=== PATIENT | female | born 2000 | race Caucasian/White ===

== ENCOUNTER 2025-04-22 07:04 | Emergency (ER) | payer BC, SELFPAY ==
[2025-04-22 07:06] VITALS: BP 126/83
--- NOTE | 2025-04-22 07:34 | ED.GENMED ---
History of Present Illness
General
Chief Complaint: Abdominal Symptoms
Time Seen by Provider: 04/22/25 07:34
History of Present Illness
History of Present Illness:
FOCUSED PAST MEDICAL HISTORY
- Has had uterine polyps in the past
REVIEW OF OLD RECORDS
- No old records available for review in [facility]
Note:
CHIEF COMPLAINT(S)
Abdominal pain and diarrhea.
HISTORY OF PRESENT ILLNESS
The patient is a 24-year-old female who presents with abdominal pain and diarrhea. Symptoms began on with abdominal pain that she initially attributed to menstrual cramps as it coincided with the end of her menstrual cycle. She experienced
diarrhea 12 to 15 times throughout the day on , even having to stop on the side of the road due to urgency. The diarrhea resolved with no bowel movements until the day before the visit when she had a normal bowel movement. This morning, she
awoke at 6 a.m. with a recurrence of the abdominal pain, described as sharp and located on the lower side. The patient denies having abdominal pain yesterday. She describes tenderness in the area but denies any pain on palpation in other areas. She
is unsure about the relation to her menstrual cycle. She has no current fever or vaginal discharge.
PAST MEDICAL AND SURGICAL HISTORY
No mention of past medical conditions or surgeries.
SOCIAL HISTORY
The patient is a student nurse.
PHYSICAL EXAM
General: Alert, appears in no acute distress.
Abdomen: Tenderness in the lower quadrant on palpation.
PROBLEM LIST
- Acute abdominal pain
- Diarrhea
PLAN
- Administer non-narcotic anti-inflammatory medication (Toradol).
- Initiate intravenous fluids.
- Conduct blood work.
- Arrange for a computed tomography (CT) scan of the abdomen with oral and intravenous contrast to assess for potential sources of pain, considering the possibility of appendicitis or other gastrointestinal issues.
DIFFERENTIAL DIAGNOSIS
The Differential Diagnosis includes, in no particular order and is not limited to:
- Appendicitis
- Gastroenteritis
- Irritable bowel syndrome
- Inflammatory bowel disease
- Ovarian cysts
- Pelvic inflammatory disease
- Urinary tract infection
- Diverticulitis
- Endometriosis
- Mesenteric adenitis
RADIOLOGY
- CT imaging obtained which suggest proctocolitis
LABS
- White count 3.6, hemoglobin 13.0, chemistries unremarkable, hCG negative, lipase and LFTs normal
UPDATE
-SUMMARY OF ENCOUNTER
The patient, a 24-year-old female, presented to the emergency department with complaints of abdominal pain and diarrhea. Initially concerned that the pain might relate to her menstrual cycle, further assessment involving a CT scan revealed mild
inflammation in the lower portion of the large intestine, described as mild proctocolitis. Additionally, a possible ovarian cyst or fluid was noted, which could correlate with her history of ovarian cysts and recent abdominal pain. The patient
reported feeling well enough to go home, and the decision was made to forgo antibiotic treatment as the inflammation appeared mild and non-severe. The potential for a ruptured cyst causing the acute pain was considered, but not deemed severe enough
to require immediate surgical intervention.
DISPOSITION
Discharge
ASSESSMENT
The patients symptoms are likely due to mild colitis and a possible ruptured ovarian cyst, both of which can resolve without antibiotics or surgical intervention.
EMERGENCY TREATMENTS ADMINISTERED
Non-narcotic anti-inflammatory medication was continued, as suggested during the visit.
PLAN
The patient will be discharged with instructions to continue monitoring symptoms and to use [id number]-nep-rgefijx anti-inflammatory medication for pain relief. Written summaries of findings will be provided for follow-up with her healthcare providers.
INDEPENDENT REVIEW OF LABS AND INTERPRETATION OF TESTS
My independent review of the CT scan reveals mild inflammation of the rectum and lower colon. A possibility of small fluid or an ovarian cyst on the right side was noted, correlating with the area of pain and the patients history of ovarian cysts.
PATIENT EDUCATION AND COUNSELING
The patient was informed about the mild nature of the findings and the decision to avoid antibiotics, which could worsen symptoms. She was advised about the likely self-limiting nature of both the mild inflammation and possible ruptured cyst, and
encouraged to follow up with her ceiling installer.
FOLLOW-UP INSTRUCTIONS
The patient is advised to follow up with her ceiling installer and primary care physician in [place].
MEDICATION RECONCILIATION
Non-narcotic anti-inflammatory medication continued as needed for pain management.
MEDICAL DECISION MAKING
-Number and Complexity of Problems Addressed: Differential diagnosis includes appendicitis, gastroenteritis, irritable bowel syndrome, inflammatory bowel disease, ovarian cysts, pelvic inflammatory disease, urinary tract infection, diverticulitis,
endometriosis, and mesenteric adenitis.
-Data:
Category 1:
The CT scan was independently reviewed, revealing mild proctocolitis and possible ovarian cyst or fluid.
Category 2:
Information was supplemented by patient history and description of recent imaging results from [place].
Category 3:
Decision to forgo antibiotics based on discussion of findings, mild symptoms, and the nature of inflammation.
-Risk:
Consideration of admission/observation was assessed. It was determined the patient is safe for outpatient management and discharge, given stable vitals and reassuring examination findings.
DIAGNOSIS
- Mild Proctocolitis (ICD-10: K52.9)
- Possible Ruptured Ovarian Cyst (ICD-10: N83.20)
Phy Exam
Physical Exam
Physical Exam:
See HPI
Course
Orders/Labs/Results
Orders:
Orders
04/22/25 07:50
CT Abd/pel W Iv And Oral Contr Urgent
Comment:
Reason For Exam: abd pain; severe RLQ tender; resolving diarrhea
0.9% Sodium Chloride 1000 ml [Nss] 1,000 ml IV BOLUS
Iohexol [Omnipaque] See Protocol PO NOW STA
Ketorolac [Toradol] 15 mg IV NOW STA
Test Result ONCE
04/22/25 08:16
Complete Blood Count/With Diff Urgent
Comprehensive Metabolic Panel Stat
HCG, Serum Qualitative Screen Urgent
Lipase Urgent
Abnormal Lab Results
04/22/25
08:16
WBC 3.6 L 10^3/uL
(4.8-10.8)
RBC 4.11 L 10^6/uL
(4.20-5.40)
MCH 31.6 H pg
(27.0-31.0)
Absolute Lymphs (auto) 0.8 L 10^3/uL
(1.2-3.4)
Monocytes % 9.6 H %
(1.7-9.3)
Alkaline Phosphatase 36 L U/L
(38-126)
04/22/25 08:16
04/22/25 08:16
Vital Signs
Initial and Last Documented VS:
Initial Vital Signs
Temp Pulse Resp BP Pulse Ox
36.8 C 97 18 126/83 100
04/22/25 07:06 04/22/25 07:06 04/22/25 07:06 04/22/25 07:06 04/22/25 07:06
Last Documented Vital Signs
Temp Pulse Resp BP Pulse Ox
36.8 C 97 18 119/78 99
04/22/25 07:06 04/22/25 07:06 04/22/25 07:06 04/22/25 10:34 04/22/25 10:45
*Pulse Oximetry
SaO2: 100
Oxygen Mode of Delivery: Room air
Patient hypoxic: no
*Critical Care Note
Total Time (30-74mins, 75-104mins- exclusive of procedures): Not Applicable
ED Attending Note
-
Portions of this chart may have been created with voice recognition software.� Occasional wrong word or��sound alike� substitutions may have occurred due to the inherent limitations of voice recognition software.
Discharge Plan
Departure
Patient Disposition: Home (Routine Discharge)
Date of Disposition: 04/22/25
Time of Disposition: 11:38
Patient with high blood pressure during this ER visit?: Yes
Discharge Problem:
Abdominal pain
Instructions: Abdominal Pain, BLOOD PRESSURE
Referrals:
Fox Pastrana DO [Family Provider, Family Practice]
Stand Alone Forms: Back to School
Activity Restrictions/Additional Instructions:
You had a CAT scan today with oral and IV contrast that suggested some mild proctocolitis. Your white blood cell count however is not elevated, you do not have a fever, and are fairly comfortable in appearance therefore I recommend against any
antibiotics. The CAT scan also showed some fluid in the right lower side which could be reflective of a recently ruptured ovarian cyst. I recommend that you follow-up with your doctors in [place]. I recommend 3-4 [id number]-[id number] ibuprofen
(Motrin) every 8 hours with food for a few days. Return here if worse.
Interventions
Interventions:
*Risk Screen - Suicide Last Done: 04/22/25 07:05
*General Assessment Last Done: 04/22/25 07:08
*Neglect/Abuse Screening Last Done: 04/22/25 07:08
*ED- Fall Risk Assessment Last Done: 04/22/25 08:06
*ED COVID-19 Vaccine History Last Done: 04/22/25 08:06
LQ-Qwzbrp-Jchfjeuwod Assessment Last Done: 04/22/25 08:06
Discharge Date and Time
Print Language: BURMESE
[2025-04-22 08:06] VITALS: BMI 19.7
[2025-04-22] MEDS: NSS 1000 IV (08:19)
[2025-04-22] MEDS: OMNIPAQUE 50 ML PO (08:20)
[2025-04-22] MEDS: TORADOL 15 MG IV (08:20)
[2025-04-22 08:36] LABS: Hematocrit 37.3 % (37.0-47.0); Hemoglobin 13.0 g/dL (12.0-16.0); Mean Corp Hgb Conc. 34.9 g/dL (33.0-37.0); Mean Corpuscular Volume 90.8 fL (81.0-99.0); Nucleated Red Blood Cells % 0 %; Platelet Count 164 10^3/uL (130-400); Red Cell Dist. Width 11.9 % (11.5-14.5)
[2025-04-22 08:46] LABS: HCG, Serum Qualitative Screen Negative
[2025-04-22 08:48] LABS: ALT (SGPT) 15 U/L (0-35); AST (SGOT) 20 U/L (14-36); Albumin 4.2 g/dl (3.5-5.0); Alkaline Phosphatase 36 U/L (38-126); Blood Urea Nitrogen 9 mg/dl (7-17); Calcium 9.3 mg/dl (8.4-10.2); Carbon Dioxide 26 mmol/L (22-30); Chloride 107 mmol/L (98-107); Estimated Creatinine Clearance 111 ml/min; Glucose 88 mg/dl (70-99); Potassium 3.9 mmol/L (3.5-5.1); Sodium 139 mmol/L (135-145); Total Protein 6.7 g/dl (6.3-8.2); eGFR > 60.00
[2025-04-22 08:52] LABS: Lipase 51 U/L (23-300)
[2025-04-22 10:34] VITALS: BP 119/78
[2025-04-22 11:00] VITALS: BP 110/70
== END 2025-04-22 11:53 | disposition home or self-care (01) ==
LOC: EMR 07:04
PROVIDERS: EMERGENCY PHYSICIAN Emergency Medicine; FAMILY PHYSICIAN Family Medicine
DX: R10.31 Right lower quadrant pain (principal); R19.7 Diarrhea, unspecified
CPT/HCPCS: 99284; 96374; 96361; 74177; 80053; 83690; 84703; 85025; Q9967